=== PATIENT | female | born 1985 | race Caucasian/White ===

== ENCOUNTER → 2019-09-28 16:45 | Outpatient (CLI) | payer OTHER, SELFPAY ==
[2019-09-28 17:23] LABS: Basophils # 0.1 K/mm3 (0-0.2); Basophils % 0.8 % (0.1-2.0); Eosinophils # 0.1 K/mm3 (0.0-0.4); Eosinophils % 1.1 % (0.1-12.0); Hematocrit 42.2 % (37.0-47.0); Hemoglobin 14.6 g/dL (12.2-16.2); Lymphocytes # 1.5 K/mm3 (0.7-4.5); Lymphocytes % 19.6 % (10-50); Mean Corpuscular HGB Conc 34.7 g/dL (31.8-35.4); Mean Corpuscular Hemoglobin 31.9 pg (27.0-31.2); Mean Platelet Volume 7.3 fl (7.4-10.4); Monocytes # 0.4 K/mm3 (0.1-1.0); Monocytes % 5.2 % (1.7-9.3); Neutrophils # 5.6 K/mm3 (1.8-7.8); Neutrophils % 73.3 % (37.0-80.0); Platelet Count 270 K/mm3 (142-424); Red Blood Count 4.58 M/mm3 (4.20-5.40); White Blood Count 7.7 K/mm3 (4.8-10.8)
[2019-09-30 11:52] LABS: HIV Screen 4th Generation wRfx Non Reactive (Non Reactive); Hepatitis B Surface Antigen Negative (Negative); Hepatitis C Antibody >11.0 s/co ratio (0.0-0.9); Rapid Plasma Reagin Ab Titer Non Reactive (NonRea<1:1); Rubella Antibodies, IgG 1.99 index (Immune >0.99)
== END ==
PROVIDERS: Visit Provider Nurse Practitioner Obstetrics & Gynecology
DX: Z34.90 Encounter for supervision of normal pregnancy, unspecified, unspecified trimester (principal)
CPT/HCPCS: 36415; 85025; 86592; 86703; 86762; 86850; 87340; 87380; G0432

== ENCOUNTER → 2019-10-13 10:06 | Outpatient (CLI) | payer OTHER, SELFPAY ==
--- NOTE | 2019-10-13 10:11 | US_ITS ---
PROCEDURE: US OB <= 14 WEEKS FETUS CLINICAL INDICATION: for dates Early Ob ultrasound for dates COMPARISON: No exams were available for comparison FINDINGS: An intrauterine gestational sac is present with a pole with a crown-rump length of 4.17cm correlating to gestational age of 11weeks 1day. heart tones are present with an FHR of 157bpm. Yolk sac is noted. Unremarkable adnexa IMPRESSION: Live IUP at 11 weeks day Estimated due date by Ultrasound is 05/02/2020 Dictated by: Sreedhar Montoya MD 10/13/2019 13:05 Electronically signed by Sreedhar Montoya MD in [place] 10/13/2019 13:05
== END ==
PROVIDERS: PCP Emergency Medicine; Visit Provider Nurse Practitioner Obstetrics & Gynecology
DX: Z34.90 Encounter for supervision of normal pregnancy, unspecified, unspecified trimester (principal)
CPT/HCPCS: 76801

== ENCOUNTER → 2021-04-25 09:15 | Outpatient (CLI) | payer OTHER, SELFPAY ==
[2021-04-25 10:07] LABS: Basophils # 0.1 K/mm3 (0-0.2); Basophils % 1.7 % (0.1-2.0); Eosinophils # 0.2 K/mm3 (0.0-0.4); Hematocrit 44.5 % (37.0-47.0); Hemoglobin 15.9 g/dL (12.2-16.2); Lymphocytes # 2.1 K/mm3 (0.7-4.5); Lymphocytes % 33.6 % (10-50); Mean Corpuscular HGB Conc 35.7 g/dL (31.8-35.4); Mean Corpuscular Hemoglobin 33.4 pg (27.0-31.2); Mean Corpuscular Volume 93.6 fl (81-99); Mean Platelet Volume 7.4 fl (7.4-10.4); Monocytes # 0.4 K/mm3 (0.1-1.0); Monocytes % 6.3 % (1.7-9.3); Neutrophils # 3.4 K/mm3 (1.8-7.8); Neutrophils % 55.4 % (37.0-80.0); Platelet Count 258 K/mm3 (142-424); Red Blood Count 4.75 M/mm3 (4.20-5.40); White Blood Count 6.2 K/mm3 (4.8-10.8)
[2021-04-25 10:11] LABS: INR 0.99 (0.9-1.1); Prothrombin Time 11.2 seconds (10.1-12.5)
[2021-04-25 11:05] LABS: Chloride 108 mmol/L (98-107); Potassium 3.7 mmoL/L (3.5-5.1); Sodium 141 mmol/L (136-145)
[2021-04-25 11:07] LABS: Alanine Aminotransferase 29 U/L (12-78); Alkaline Phosphatase 127 U/L (38-126); Aspartate Amino Transferase 32 U/L (14-36); Bilirubin,Total 0.3 mg/dl (0.2-1.3); Blood Urea Nitrogen 11 mg/dl (7-17); Estimated Glomerular Filt Rate 82 ml/min (>60); GFR (African American) 99 ML/MIN (>60)
[2021-04-25 11:08] LABS: Albumin Level 4.3 g/dl (3.5-5.0); Albumin/Globulin Ratio 1.3 (1.1-1.8); Anion Gap 13.7 mEq/L (5-15); Calcium 9.3 mg/dl (8.4-10.2); Carbon Dioxide 23 mmol/L (22.0-30.0); Globulin 3.3 g/dL (1.3-3.2); Glucose 110 mg/dl (74-100); Total Protein,Serum 7.6 g/dl (6.3-8.2)
[2021-04-26 09:27] LABS: HIV Screen 4th Generation wRfx Non Reactive (Non Reactive); Hep A Ab, IgM Negative (Negative); Hep A Ab, Total Negative (Negative); Hep B Core Ab, Total Negative (Negative); Hep B Surface Ab, Qual Reactive (.); Hepatitis B Surface Antigen Negative (Negative); Hepatitis C Antibody >11.0 s/co ratio (0.0-0.9)
[2021-04-27 08:18] LABS: ALT (SGPT) P5P 27 IU/L (0-40); Alpha 2-Macroglobulins, Qn 196 mg/dL (110-276); Apolipoprotein A-1 123 mg/dL (116-209); Bilirubin, Total 0.2 mg/dL (0.0-1.2); Fibrosis Score 0.06 (0.00-0.21); GGT 20 IU/L (0-60); Haptoglobin 190 mg/dL (33-278); Necroinflammat Activity Grade A0-No activity (.); Necroinflammat Activity Score 0.09 (0.00-0.17)
== END ==
PROVIDERS: Visit Provider Nurse Practitioner Family
DX: B18.2 Chronic viral hepatitis C (principal)
CPT/HCPCS: 36415; 80053; 81596; 85025; 85610; 86703; 86704; 86706; 86708; 87340; 87380; 87522; G0432

== ENCOUNTER 2023-09-19 15:44 | Emergency (ER) | payer OTHER, SELFPAY ==
[2023-09-19 15:46] VITALS: BP 131/82; PULSE 75; RESP 18; TEMP 36.6; O2SAT 100; BMI 28.3
[2023-09-19 15:55] VITALS: BP 131/82; PULSE 91; O2SAT 98
--- NOTE | 2023-09-19 15:59 | CA_ITS ---
FINAL REPORT TECHNIQUE: Compression valencia scale and Doppler evaluation CLINICAL HISTORY: worsened pain/swelling, prior fasciotomy 1 month ago, patient unable to move left leg nor flex foot FINDINGS: Femoral and popliteal veins show normal compressibility and flow. Visualized portion of the calf veins are patent by Doppler exam. IMPRESSION: No evidence of left lower extremity deep venous thrombosis Authenticated and ERN
[2023-09-19 16:00] VITALS: BP 123/80; PULSE 89; O2SAT 97
[2023-09-19 16:30] VITALS: PULSE 97; O2SAT 98
--- NOTE | 2023-09-19 16:31 | HMH.EDGENADL ---
Discharge Plan Disposition Patient Disposition: Home, Self-Care Condition: Good Prescriptions Prescriptions: No Action amitriptyline 25 mg tablet PO methocarbamol 500 mg tablet PO PNV cmb#95-ferrous fumarate-FA [] 28 mg iron- 800 mcg tablet PO nicotine 21 mg/24 hr patch 24 hour transdermal hydroxyzine HCl 25 mg tablet PO sennosides-docusate sodium [Stimulant Laxative Plus] 8.6-50 mg tablet PO levetiracetam 500 mg tablet PO acetaminophen 325 mg tablet PO Referrals Follow up/Referrals: Divine Rubio APRN [Primary Care Provider] - See instructions Activity Restrictions/Add. Instructions Additional Instructions/Restrictions: You were evaluated in the emergency department today. Continue taking your pain medications at home as prescribed. Ice your leg to help reduce swelling. Keep it elevated as well. Follow-up closely with the surgeon who performed the procedure as well as your primary care provider. Return to the emergency department for new or worsening symptoms. Clinical Impressions Clinical Impression: Pain of left leg Instructions Patient Instructions: DI for Acute Pain -- Adult Discharge ED Provider: Jennifer Wiggins General Adult HPI General Chief complaint: Recheck/Abnormal Lab/Rx Stated complaint: left leg pain, possible blood clot Time Seen by Provider: 09/19/23 15:58 Mode of Arrival: Wheelchair Source of Information: Patient Limitations: No Limitations Description of Symptoms (Recalled from ER Triage Doc. by RN): Patient reports having compartment syndrome in her left lower leg a couple of months ago and was following up with her PCP in regards to increased pain in that leg today. PCP sent her to the ER for evaluation of possible DVT in that leg. Patient states she is unable to use that leg. History of Present Illness HPI narrative: This patient is a 38-year-old female with history of IV drug use presenting to the emergency department for evaluation from PCPs office with concern for possible DVT. Patient had compartment syndrome of her left lower extremity and underwent fasciotomy 07/31/2023. She had a prolonged hospital stay [facility], and was subsequently discharged home to [facility]. She states that she has been home for [facility] for a couple days, and she has had increasing pain in her left leg. She states that he tries to keep it up but is not able to keep it up often. She notes she was on pain medication while admitted, but she went home on Suboxone. She notes that despite the Suboxone, she is having continued pain all the way from her foot up into her thigh. She also notes that her left leg is swollen. She denies any other concerns, such as skin color changes, drainage from the wounds, new numbness or tingling, or other concerns. PCP sent her over with concern that she could possibly have a DVT Related Data Home Medications Medication Instructions Recorded Confirmed acetaminophen 325 mg tablet mg PO 09/19/23 09/19/23 amitriptyline 25 mg tablet mg PO 09/19/23 09/19/23 hydroxyzine HCl 25 mg tablet mg PO 09/19/23 09/19/23 levetiracetam 500 mg tablet mg PO 09/19/23 09/19/23 methocarbamol 500 mg tablet mg PO 09/19/23 09/19/23 nicotine 21 mg/24 hr daily transdermal 09/19/23 09/19/23 transdermal patch vit no.95-ferrous tab PO 09/19/23 09/19/23 fumarate 28 mg-folic acid 800 mcg tablet () sennosides 8.6 mg-docusate sodium PO 09/19/23 09/19/23 50 mg tablet (Stimulant Laxative Plus) Allergies Allergy/AdvReac Type Severity Reaction Status Date / Time No Known Allergies Allergy Verified 09/19/23 14:38 [facility] Disclaimer: The information contained in this section may have been updated after the patient was seen, as this information can be updated by other users. Social History Smoking Status: Current every day smoker tobacco type: cigarettes packs per day: 1 alcohol intake: never substance use type: former substance user, heroin, IV drugs and methamphetamine current occupational status: disabled Travel in the last 8 weeks: None ROS Obtained: Yes All systems reviewed & no additional complaints except as documented Physical Exam General General appearance: alert and in no apparent distress Head Head exam: atraumatic and normocephalic Eye Eye exam: Present normal appearance, PERRL and EOMI ENT ENT exam: Present normal exam, normal oropharynx, mucous membranes moist and normal external ear exam Neck Neck exam: Present normal inspection, full ROM and trachea midline; Absent tenderness Chest Chest inspection: Present normal inspection and symmetric chest wall rise; Absent tenderness Respiratory Respiratory exam: Present normal lung sounds bilaterally; Absent respiratory distress, wheezes, stridor or accessory muscle use Cardiovascular Cardiovascular exam: Present regular rate and normal rhythm Abdominal Exam Abdominal exam: Present soft; Absent distention, tenderness or guarding Extremities Exam Extremities exam: Present full ROM, normal capillary refill, edema (Left lower extremity edema) and other (Incisions on the left lower extremity are clean, dry, and intact with no purulent drainage, surrounding erythema, or other concerns. Patient's leg is warm and well-perfused.) Back Exam Back exam: Present normal inspection and full ROM; Absent tenderness Neurological Exam Neurological exam: Present alert, oriented X3, CN II-XII intact and normal gait; Absent motor sensory deficit Psychiatric Psychiatric exam: Present normal affect and normal mood Skin Skin exam: Present warm and dry Medical Decision Making Medical Records Medical records reviewed: Yes I reviewed the patient's medical records. Tarun Inquiry Pt receiving controlled substance: No Vital Signs: 09/19/23 15:46 09/19/23 15:55 09/19/23 16:00 Temperature 97.9 F Temperature Source Oral Pulse Rate 91 H 89 Pulse Rate [Radial] 75 Respiratory Rate 18 Blood Pressure 131/82 123/80 Blood Pressure [Right Arm] 131/82 Blood Pressure Mean 89 89 Blood Pressure Mean [Right Arm] 98 Blood Pressure Source Blood Pressure Source [Right Arm] Automatic Cuff Blood Pressure Position Blood Pressure Position [Right Arm] Sitting 02 Sat by Pulse Oximetry 100 98 97 Oxygen Delivery Method Room Air Room Air Room Air 09/19/23 16:30 09/19/23 17:41 09/19/23 17:41 Temperature 97.9 F 97.9 F Temperature Source Oral Oral Pulse Rate 97 H 97 H Pulse Rate [Radial] 88 Respiratory Rate 18 16 Blood Pressure 123/80 Blood Pressure [Right Arm] 130/78 Blood Pressure Mean Blood Pressure Mean [Right Arm] 95 Blood Pressure Source Automatic Cuff Blood Pressure Source [Right Arm] Automatic Cuff Blood Pressure Position Sitting Blood Pressure Position [Right Arm] Sitting 02 Sat by Pulse Oximetry 98 99 Oxygen Delivery Method Room Air Room Air Lab Data Lab results reviewed: Yes I reviewed the patient's lab results. Lab Results 09/19/23 16:39: WBC 4.4 L, RBC 3.94 L, Hgb 12.5, Hct 37.8, MCV 96.0, MCH 31.8 H, MCHC 33.1, RDW 12.5, Plt Count 206, MPV 8.0, Neut % (Auto) 52.9, Lymph % (Auto) 38.0, [place] % (Auto) 4.6, Eos % (Auto) 3.2, Baso % (Auto) 1.4, Neut # (Auto) 2.3, Lymph # (Auto) 1.7, [place] # (Auto) 0.2, Eos # (Auto) 0.1, Baso # (Auto) 0.1, Sodium 139, Potassium 4.0, Chloride 106, Carbon Dioxide 28, Anion Gap 9.0, BUN 11, Creatinine 1.00, Estimated Creat Clear 94, Estimated GFR 62, Est GFR ( Amer) 75, Glucose 86, Lactate 0.9, Calcium 10.4 H, Total Bilirubin 0.4, AST 28, ALT 20, Alkaline Phosphatase 89, Total Creatine Kinase 69, Total Protein 7.9, Albumin 4.5, Globulin 3.4 H, Albumin/Globulin Ratio 1.3 09/19/23 16:39 09/19/23 16:39 Orders (Tests/Meds): ED MEDICATIONS Discontinued Medications Generic Name Dose Route Start Last Admin Trade Name Freq PRN Reason Stop Dose Admin Ketorolac Tromethamine 15 mg 09/19/23 16:35 09/19/23 16:39 Ketorolac 30mg/Ml Vial IV 09/19/23 16:36 15 mg ONCE ONE Administration ORDERS Category Date Time Status Complete Blood Count Auto Diff Stat Lab 09/19/23 16:39 Completed Comprehensive Metabolic Panel Stat Lab 09/19/23 16:39 Completed Creatine Kinase Stat Lab 09/19/23 16:39 Completed Lactic Acid Stat Lab 09/19/23 16:39 Completed CA venous doppler LE LT Stat Y 09/19/23 15:59 Completed Medical Decision Narrative: In summary, this patient is a 38-year-old female presenting to the Emergency Department for evaluation of worsening left leg pain since fasciotomy at the beginning of July. Differential diagnoses considered include but are not limited to DVT, compartment syndrome, cellulitis, postoperative infection, pain from dependent edema. Ruling out the most morbid conditions drove assessment. On exam, the patient is well-appearing. Her leg is edematous with no skin color changes. Incisions are clean and dry. No obvious appearance of infection. Workup included CBC, CMP, lactic acid, CK, and DVT ultrasound. Patient was given IV Toradol. I independently interpreted ultrasound prior to the radiologist read and noted no obvious acute DVT. Please see their read for final interpretation. Labs were obtained that demonstrated no acutely concerning abnormalities. No significant leukocytosis, and CK is normal, and lactic acid is normal. At this time, given reassuring workup and exam, I feel the patient is appropriate for discharge with continued outpatient follow-up. Strict return precautions were given, and the patient was discharged with instructions for supportive management. Critical Care Critical Care Time Critical Care Time: No
[2023-09-19] MEDS: KETOROLAC 30MG/ML VIAL 15 MG IV (16:39)
[2023-09-19 16:51] LABS: Basophils # 0.1 K/mm3 (0-0.2); Basophils % 1.4 % (0.1-2.0); Chloride 106 mmol/L (98-107); Eosinophils # 0.1 K/mm3 (0.0-0.4); Eosinophils % 3.2 % (0.1-12.0); Hematocrit 37.8 % (37.0-47.0); Hemoglobin 12.5 g/dL (12.2-16.2); Lymphocytes # 1.7 K/mm3 (0.7-4.5); Mean Corpuscular HGB Conc 33.1 g/dL (31.8-35.4); Mean Corpuscular Hemoglobin 31.8 pg (27.0-31.2); Monocytes # 0.2 K/mm3 (0.1-1.0); Monocytes % 4.6 % (1.7-9.3); Neutrophils # 2.3 K/mm3 (1.8-7.8); Neutrophils % 52.9 % (37.0-80.0); Platelet Count 206 K/mm3 (142-424); Red Blood Count 3.94 M/mm3 (4.20-5.40); Red Cell Distribution Width 12.5 % (11.5-17.5); Sodium 139 mmol/L (136-145); White Blood Count 4.4 K/mm3 (4.8-10.8)
[2023-09-19 16:54] LABS: Alanine Aminotransferase 20 U/L (12-78); Albumin Level 4.5 g/dl (3.5-5.0); Albumin/Globulin Ratio 1.3 (1.1-1.8); Alkaline Phosphatase 89 U/L (38-126); Aspartate Amino Transferase 28 U/L (14-36); Bilirubin,Total 0.4 mg/dl (0.2-1.3); Blood Urea Nitrogen 11 mg/dl (7-17); Calcium 10.4 mg/dl (8.4-10.2); Carbon Dioxide 28 mmol/L (22.0-30.0); Creatine Kinase 69 U/L (30-135); Creatinine Clearance Estimated 94 mL/min (50-200); Estimated Glomerular Filt Rate 62 ml/min (>60); GFR (African American) 75 ML/MIN (>60); Globulin 3.4 g/dL (1.3-3.2); Glucose 86 mg/dl (74-100); Lactic Acid 0.9 mmol/L (0.7-2.1); Total Protein,Serum 7.9 g/dl (6.3-8.2)
[2023-09-19 17:41] VITALS: BP 123/80; BP 130/78; PULSE 88; PULSE 97; RESP 16; RESP 18; TEMP 36.6; O2SAT 98; O2SAT 99
== END 2023-09-19 17:41 | disposition home or self-care (01) ==
PROVIDERS: Emergency Provider Emergency Medicine; PCP Family Medicine
DX: M79.605 Pain in left leg (principal); F17.210 Nicotine dependence, cigarettes, uncomplicated
CPT/HCPCS: 80053; 82550; 83605; 85025; 93971; 96374; 99284